=== PATIENT | male | born 1970 | race Caucasian/White ===

== ENCOUNTER 2022-01-17 22:41 | Emergency (ER) | payer BC, OTHER ==
[~2022-01-17] VITALS: Ht 185.5 cm; Wt 84.0 kg
[2022-01-17] MEDS ORDERED: NS IV 1000 ML 1,000 ML IV SCH (23:15)
[2022-01-17 23:18] LABS: ABG BASE EXCESS -0.3 MMOL/L (-2.5-2.5); ABG OXYGEN SATURATION 52 % (94-100); ABG PCO2 50 MMHG (35-45)
[2022-01-17 23:18] LABS: BASOPHILS % (AUTO) 0 % (0-10); EOSINOPHILS # (AUTO) 0.3 10^3/uL (0.0-0.3); EOSINOPHILS % (AUTO) 2 % (0-10); HEMATOCRIT 48 % (40-54); HEMOGLOBIN 15.8 g/dL (13.3-17.7); LYMPHOCYTES # (AUTO) 3.4 10^3/uL (1.0-4.0); LYMPHOCYTES % (AUTO) 27 % (12-44); MEAN CORPUSCULAR HEMOGLOBIN 32 pg (25-34); MEAN CORPUSCULAR HGB CONC 33 g/dL (32-36); MEAN CORPUSCULAR VOLUME 96 fL (80-99); MEAN PLATELET VOLUME 9.6 fL (9.0-12.2); MONOCYTES # (AUTO) 0.6 10^3/uL (0.0-1.0); MONOCYTES % (AUTO) 5 % (0-12); NEUTROPHILS # (AUTO) 8.2 10^3/uL (1.8-7.8); NEUTROPHILS % (AUTO) 66 % (42-75); PLATELET COUNT 386 10^3/uL (130-400); WHITE BLOOD COUNT 12.5 10^3/uL (4.3-11.0)
[2022-01-17 23:20] VITALS: BP_SYST 127; BP_SYST 128; BP_SYST 129; BP_DIAS 64; BP_DIAS 66; BP_DIAS 79
[2022-01-17 23:20] LABS: ABG PH 7.32 (7.37-7.43); ABG PO2 27 MMHG (79-93); ALLENS TEST YES-POS; INSPIRED O2 ROOM AIR; PATIENT TEMP 95.6; VENTILATOR NO
--- NOTE | 2022-01-17 23:21 | ED Syncope ---
General Chief Complaint: General Problems/Pain Stated Complaint: SHAKY,CHILLS,LOST CONTROL OF BOWELS,NAUSEA Source of Information: Patient Exam Limitations: No Limitations History of Present Illness Date Seen by Provider: Jan 17, 2022 Time Seen by Provider: 22:52 Initial Comments Patient presents ER by private conveyance with and son. He was getting up to go to the bathroom and fell down to the ground was too weak to get back up. He did not strike his head nor lose consciousness. He was sweating immensely according to his . He was too weak to stand. His says he has had this happen 3 times in the past 30 years and has never had it worked up. He has no known medical history and does not follow with a doctor routinely. He does not take any medicines routinely. He had couple episodes of emesis. This all started about an hour prior to arrival. He says he is feeling better now no longer having the weakness. He is not having any pain. He also lost his bowels. He does not have a known history of epilepsy but his says for about a minute he was convulsing full body and would not speak or follow any commands. She said he was kind of out of it afterwards. He does not have a history of diabetes that he knows of and his blood sugar was 170 per nursing staff when he arrived. No known history of coronary disease. He says his mom had lots of heart history problems. He denies any shortness of air cough fevers chills. 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 Allergies and Home Medications Allergies Coded Allergies: No Known Drug Allergies (Unverified , 01/17/22) Patient Home Medication List Home Medication List Reviewed: Yes Albuterol Sulfate (Proair Hfa) 1 Puff Puff, 2 PUFF IH Q4H PRN for COUGH Prescribed by: NELI BASURTO on 01/18/22154 Azithromycin (Azithromycin) 250 Mg Tablet, 250 MG PO DAILY Prescribed by: NELI BASURTO on 01/18/22154 Cefdinir (Cefdinir) 300 Mg Capsule, 300 MG PO BID Prescribed by: NELI BASURTO on 01/18/22154 Methylprednisolone (Methylprednisolone Dose Pack) 4 Mg Tab.ds.pk, 4 MG PO UD Prescribed by: NELI BASURTO on 01/18/22154 Review of Systems Constitutional: No chills; diaphoresis, dizziness; No fever; malaise, weakness EENTM: see HPI; No ear pain, No eye pain, No tearing Respiratory: No cough, No short of breath, No wheezing Cardiovascular: No chest pain, No edema, No Hx of Intervention Gastrointestinal: No abdominal pain, No constipation; diarrhea; No dysphagia, No nausea; vomiting Genitourinary: No decreased output, No discharge Musculoskeletal: No back pain, No joint pain All Other Systems Reviewed Negative Unless Noted: Yes Past Rzwcqmk-Rhrrsk-Uldnxh Hx Patient Social History Tobacco Use?: No Use of E-Cig and/or Vaping dev: No Substance use?: No Alcohol Use?: No Pt feels they are or have been: No Immunizations Up To Date Influenza Vaccine Up-to-Date: No; Not Current First/Initial COVID19 Vaccinat: N/A Physical Exam Vital Signs Vital Signs - First Documented 01/17/22 22:49 Temp 35.9 Pulse 93 Resp 20 B/P (MAP) 138/73 (94) Pulse Ox 95 O2 Delivery Room Air Capillary Refill : Height, Weight, BMI Height: '" Weight: lbs. oz. kg; BMI Method: General Appearance: WD/WN, Mild Distress HEENT: PERRL/EOMI, TMs Normal, Normal ENT Inspection, Pharynx Normal (Negative for erythema injection or exudate); No Moist Mucous Membranes Neck: Full Range of Motion, Normal Inspection, Non Tender, Supple Cardiovascular: Regular Rate, Rhythm, No Edema, Normal Peripheral Pulses Respiratory: Lungs Clear, Normal Breath Sounds, No Accessory Muscle Use, No Respiratory Distress Gastrointestinal: Normal Bowel Sounds, No Organomegaly, No Pulsatile Mass, Non Tender, Soft Extremities: Normal Inspection, Normal Range of Motion, Non Tender, No Pedal Edema, Slow Capillary Refill (Bilateral feet) Neurologic/Psychiatric: Alert, Oriented x3 Cranial Nerves: Normal Hearing, Normal Speech, PERRL Motor/Sensory: No Motor Deficit, No Sensory Deficit Skin: Warm/Dry, Mottled (Dusky appearance across his chest and upper extremities.) Progress/Results/Core Measures Results/Orders Lab Results Laboratory Tests Test 01/17/22 22:53 01/17/22 22:55 01/17/22 23:07 01/17/22 23:40 Range/Units White Blood Count 12.5 H 4.3-11.0 10^3/uL Red Blood Count 4.98 4.30-5.52 10^6/uL Hemoglobin 15.8 13.3-17.7 g/dL Hematocrit 48 40-54 % Mean Corpuscular Volume 96 80-99 fL Mean Corpuscular Hemoglobin 32 25-34 pg Mean Corpuscular Hemoglobin Concent 33 32-36 g/dL Red Cell Distribution Width 14.1 10.0-14.5 % Platelet Count 386 130-400 10^3/uL Mean Platelet Volume 9.6 9.0-12.2 fL Immature Granulocyte % (Auto) 0 % Neutrophils (%) (Auto) 66 42-75 % Lymphocytes (%) (Auto) 27 12-44 % Monocytes (%) (Auto) 5 0-12 % Eosinophils (%) (Auto) 2 0-10 % Basophils (%) (Auto) 0 0-10 % Neutrophils # (Auto) 8.2 H 1.8-7.8 10^3/uL Lymphocytes # (Auto) 3.4 1.0-4.0 10^3/uL Monocytes # (Auto) 0.6 0.0-1.0 10^3/uL Eosinophils # (Auto) 0.3 0.0-0.3 10^3/uL Basophils # (Auto) 0.0 0.0-0.1 10^3/uL Immature Granulocyte # (Auto) 0.1 0.0-0.1 10^3/uL Prothrombin Time 14.4 12.2-14.7 SEC INR Comment 1.1 0.8-1.4 Activated Partial Thromboplast Time 25 24-35 SEC D-Dimer 0.11 0.00-0.49 UG/ML Sodium Level 144 135-145 MMOL/L Potassium Level 3.7 3.6-5.0 MMOL/L Chloride Level 108 H 98-107 MMOL/L Carbon Dioxide Level 21 21-32 MMOL/L Anion Gap 15 H 5-14 MMOL/L Blood Urea Nitrogen 11 7-18 MG/DL Creatinine 1.12 0.60-1.30 MG/DL Estimat Glomerular Filtration Rate 79 BUN/Creatinine Ratio 10 Glucose Level 174 H 70-105 MG/DL Calcium Level 9.5 8.5-10.1 MG/DL Corrected Calcium 9.1 8.5-10.1 MG/DL Magnesium Level 2.1 1.6-2.4 MG/DL Total Bilirubin 0.3 0.1-1.0 MG/DL Aspartate Amino Transf (AST/SGOT) 12 5-34 U/L Alanine Aminotransferase (ALT/SGPT) 19 0-55 U/L Alkaline Phosphatase 64 40-136 U/L Troponin I < 0.028 <0.028 NG/ML C-Reactive Protein High Sensitivity 0.19 0.00-0.50 MG/DL Total Protein 7.5 6.4-8.2 GM/DL Albumin 4.5 3.2-4.5 GM/DL Procalcitonin 0.03 <0.10 NG/ML Serum Alcohol < 10 <10 MG/DL Glucometer 172 H 70-110 MG/DL Blood Gas Puncture Site LT RAD RT RAD Blood Gas Patient Temperature 95.6 35.9 Arterial Blood pH 7.32 *L 7.37 7.37-7.43 Arterial Blood Partial Pressure CO2 50 H 39 35-45 MMHG Arterial Blood Partial Pressure O2 27 *L 48 L 79-93 MMHG Arterial Blood HCO3 25 22 L 23-27 MMOL/L Arterial Blood Total CO2 27.0 23.3 21.0-31.0 MMOL/L Arterial Blood Oxygen Saturation 52 L 89 L 94-100 % Arterial Blood Base Excess -0.3 -2.6 L -2.5-2.5 MMOL/L Maxi Test YES-POS YES-POS Blood Gas Ventilator Setting NO NO Blood Gas Inspired Oxygen ROOM AIR ROOM AIR Test 01/18/22 01:15 Range/Units Urine Color YELLOW Urine Clarity CLEAR Urine pH 6.0 5-9 Urine Specific [place] >=1.030 1.016-1.022 Urine Protein 1+ H NEGATIVE Urine Glucose (UA) NEGATIVE NEGATIVE Urine Ketones TRACE H NEGATIVE Urine Nitrite NEGATIVE NEGATIVE Urine Bilirubin NEGATIVE NEGATIVE Urine Urobilinogen 0.2 < = 1.0 MG/DL Urine Leukocyte Esterase NEGATIVE NEGATIVE Urine RBC (Auto) NEGATIVE NEGATIVE Urine RBC NONE /HPF Urine WBC NONE /HPF Urine Crystals NONE /LPF Urine Bacteria NEGATIVE /HPF Urine Casts NONE /LPF Urine Mucus NEGATIVE /LPF Urine Culture Indicated NO My Orders Orders - NELI BASURTO Cbc With Automated Diff (01/17/22 23:10) Comprehensive Metabolic Panel (01/17/22 23:10) Hs C Reactive Protein (01/17/22 23:10) Ua Culture If Indicated (01/17/22 23:10) Alcohol (01/17/22 23:10) Fibrin Degradation Products (01/17/22 23:10) Procalcitonin (Pct) (01/17/22 23:10) Arterial Blood Gas (01/17/22 23:10) Chest 1 View, Ap/Pa Only (01/17/22 23:10) Troponin I [place] (01/17/22 23:10) Magnesium (01/17/22 23:10) Protime With Inr (01/17/22 23:10) Partial Thromboplastin Time (01/17/22 23:10) Ct Head Wo (01/17/22 23:10) Orthostatic Vital Signs (Adult (01/17/22 23:10) Accucheck Stat ONCE (01/17/22 23:13) Ed Iv/Invasive Line Start (01/17/22 23:13) Ns Iv 1000 Ml (Sodium Chloride 0.9%) (01/17/22 23:15) Aspirin Chewable Tablet (Baby Aspirin Ch (01/17/22 23:30) Arterial Blood Gas (01/17/22 23:51) Arterial Blood Draw - Obtain (01/17/22 23:40) Ceftriaxone 1 Gm Pre-Mix (Rocephin 1 Gm (01/18/22 02:00) Azithromycin Tablet (Zithromax Tablet) (01/18/22 02:00) Methylprednisolone Sod Succ (Solu-Medrol (01/18/22 02:00) Mycoplasma Antibodies (01/18/22 01:56) Medications Given in ED Vital Signs/I&O 01/17/22 01/17/22 01/18/22 22:49 23:20 02:01 Temp 35.9 Pulse 93 88 89 96 100 Resp 20 20 B/P (MAP) 138/73 (94) 127/66 (86) 115/67 128/79 (95) 129/64 (85) Pulse Ox 95 96 O2 Delivery Room Air Room Air Progress Progress Note #1: Time: 23:24 Progress Note Differential includes seizure, syncopal episode, PE, atypical coronary syndrome etc. We will give him some aspirin check some orthostats negative CT of his head. We will get some labs, ABG and urinalysis to help us sort out what is going on. Chest x-ray. His first ABG appears to be venous. Progress Note #2: Time: 01:40 Progress Note Orthostatic vital signs are unremarkable. The patient declined COVID or influenza testing. Progress Note #3: Time: 01:52 Progress Note The patient is not likely to have a pulmonary embolism with a negative D-dimer. His chest x-ray does not show distinct pneumonia however a walking pneumonia is possible. He endorses coughing a lot lately. He says he is a smoker. He certainly has diminished lung sounds so we will put him on steroids and an tibiotics as well as give him an inhaler and tell him to follow-up this week or next with a primary care provider. Return precautions were gone over. We strongly encouraged him to stay in the hospital but he declined stating he just wants to go home. He has felt well since he got here and has never had any pain. We will allow him to leave at this time. Initial ECG Impression Date: Jan 17, 2022 Initial ECG Impression Time: 22:58 Initial ECG Rate: 89 Initial ECG Rhythm: Normal Sinus Initial ECG Intervals: Normal Initial ECG Impression: Normal Comment Normal sinus rhythm without clinically relevant ST elevation or depression. Minor tremor artifact noted. Diagnostic Imaging Diagonstic Imaging: Xray Plain Films/CT/US/NM/MRI: chest Comments No acute cardiopulmonary process on 1 view chest x-ray. [facility], [place] NAME: SUZETTE KHAN [facility] REC#: [id number] PT STATUS: DEP ER : 1970 PHYSICIAN: NELI BASURTO MD ADMIT DATE: 01/17/22/ER Signed Date of Exam:01/17/22 CHEST 1 VIEW, AP/PA ONLY Indication: Syncope Frontal chest obtained at 1138 p.m. Heart and mediastinal silhouette are normal in appearance. There is central vascular congestion with borderline edema. There is no consolidation or pneumothorax or pleural fluid. IMPRESSION: Central vascular congestion with borderline edema. No consolidation or pleural fluid. Dictated by: Dictated on workstation # [id number] Dict: 01/18/22 0647 Trans: 01/18/22 0753 [facility] [id number] Interpreted by: SANTA CHEN MD Electronically signed by: SANTA CHEN MD 01/18/22 0753 Reviewed: Reviewed by Me Diagonstic Imaging: CT Plain Films/CT/US/NM/MRI: head Comments No acute hemorrhage, hydrocephalus or mass-effect. [facility] [place], [place] NAME: SUZETTE KHAN [facility] REC#: [id number] PT STATUS: DEP ER : 1970 PHYSICIAN: NELI BASURTO MD ADMIT DATE: 01/17/22/ER Signed Date of Exam:01/17/22 CT HEAD WO INDICATION: Syncope. TECHNIQUE: Multiple contiguous axial images were obtained through the brain without the use of intravenous contrast. Auto Exposure Controls were utilized during the CT exam to meet ALARA standards for radiation dose reduction. There is no prior brain CT for comparison. FINDINGS: There are no extra-axial fluid collections. No intracranial hemorrhage. No intracranial mass or mass effect. No midline shift. The ventricles are normal in size and position. There were no focal parenchymal abnormalities in the brain. Calvarial windows show no acute bony abnormality. There is some mucosal thickening in the ethmoid air cells. IMPRESSION: No acute intracranial abnormality. Underlying sinus disease as described above. Dictated by: Dictated on workstation # [id number] Dict: 01/18/22616 Trans: 01/18/22752 [id number] Interpreted by: SANTA CHEN MD Electronically signed by: SANTA CHEN MD 01/18/22 0753 Reviewed: Reviewed Night [facility] Study, Reviewed by Me Departure Impression Primary Impression: Syncope and collapse Additional Impressions: COPD (chronic obstructive pulmonary disease) Qualified Codes: J44.9 - Chronic obstructive pulmonary disease, unspecified Pneumonia Qualified Codes: J18.9 - Pneumonia, unspecified organism Disposition: HOME, SELF-CARE Condition: Stable Departure-Patient Inst. Decision time for Depature: 01:52 Referrals: NO,LOCAL PHYSICIAN (PCP/Family) Primary Care Physician Patient Instructions: Exacerbation of COPD, LOCAL PHYSICIAN LIST, Near Fainting (DC), Pneumonia, Adult ED Add. Discharge Instructions: I suspect that you may have a pneumonia not seen on the chest x-ray in addition to your chronic lung disease. We have sent off some blood tests for mycoplasma antibodies, a type of p neumonia. If it is positive in the next couple days we will call you and let you know. Take the Medrol Dosepak as prescribed. Cefdinir 1 capsule twice a day for 10 days. Azithromycin 1 tablet daily for another 4 days starting on 01/19/2022. Albuterol 2 puffs every 4 hours as needed for coughing fits, shortness of air or wheezing. Follow-up with a primary care provider in the next 7 to 10 days. Return to the ER for significant worsening symptoms. All discharge instructions reviewed with patient and/or family. Voiced understanding. Scripts Azithromycin (Azithromycin) 250 Mg Tablet 250 MG PO DAILY, #4 TAB 0 Refills Prov: NELI BASURTO 01/18/22 Cefdinir (Cefdinir) 300 Mg Capsule 300 MG PO BID for 10 Days, #20 CAP 0 Refills Prov: NELI BASURTO 01/18/22 Methylprednisolone (Methylprednisolone Dose Pack) 4 Mg Tab.ds.pk 4 MG PO UD for 6 Days, #21 PKG 0 Refills PER DOSE PACK INSTRUCTIONS Prov: NELI BASURTO 01/18/22 Albuterol Sulfate (PROAIR HFA) 1 Puff Puff 2 PUFF IH Q4H PRN for COUGH, #1 EA 0 Refills 1 PUFF = 90 MCG Prov: NELI BASURTO 01/18/22 Work/School Note: Work Release Form Date Seen in the Emergency Department: Jan 18, 2022 Return to Work: Jan 23, 2022 Restrictions: No Restrictions, Return-No Fever (24hrs) NELI BASURTO Jan 17, 2022 23:21
[2022-01-17 23:30] LABS: FIBRIN DEGRADATION PRODUCTS 0.11 UG/ML (0.00-0.49); INR 1.1 (0.8-1.4); PROTHROMBIN TIME PATIENT 14.4 SEC (12.2-14.7)
[2022-01-17] MEDS ORDERED: ASPIRIN 81 MG CHEW (CHILDREN'S ASA) PO ONE (23:30)
[2022-01-17 23:32] LABS: ALANINE AMINOTRANSFERASE 19 U/L (0-55); ALBUMIN 4.5 GM/DL (3.2-4.5); ALKALINE PHOSPHATASE 64 U/L (40-136); BILIRUBIN,TOTAL 0.3 MG/DL (0.1-1.0); BUN/CREATININE RATIO 10; CALCIUM 9.5 MG/DL (8.5-10.1); CARBON DIOXIDE 21 MMOL/L (21-32); CHLORIDE 108 MMOL/L (98-107); CREATININE SERUM 1.12 MG/DL (0.60-1.30); GFR ESTIMATED 79; GLUCOSE 174 MG/DL (70-105); MAGNESIUM 2.1 MG/DL (1.6-2.4); POTASSIUM 3.7 MMOL/L (3.6-5.0); SODIUM 144 MMOL/L (135-145); TOTAL PROTEIN 7.5 GM/DL (6.4-8.2)
[2022-01-17 23:56] LABS: ABG BASE EXCESS -2.6 MMOL/L (-2.5-2.5); ABG OXYGEN SATURATION 89 % (94-100); ABG PCO2 39 MMHG (35-45); ABG PH 7.37 (7.37-7.43); ABG PO2 48 MMHG (79-93); ABG TCO2 23.3 MMOL/L (21.0-31.0); ALLENS TEST YES-POS; INSPIRED O2 ROOM AIR; PATIENT TEMP 35.9; VENTILATOR NO
[2022-01-18 01:21] LABS: BILIRUBIN,URINE NEGATIVE (NEGATIVE); CLARITY,URINE CLEAR; COLOR,URINE YELLOW; GLUCOSE, URINE (UA) NEGATIVE (NEGATIVE); KETONES,URINE TRACE (NEGATIVE); LEUKOCYTE ESTERASE ,URINE NEGATIVE (NEGATIVE); NITRITE,URINE NEGATIVE (NEGATIVE); PROTEIN,URINE 1+ (NEGATIVE)
[2022-01-18 01:53] LABS: BACTERIA,URINE NEGATIVE /HPF
[2022-01-18] MEDS ORDERED: METH4TAB10 PO (01:55)
[2022-01-18] MEDS ORDERED: RT-ALBUINH IH (01:55)
[2022-01-18] MEDS ORDERED: CEFD300C3 PO (01:55)
[2022-01-18] MEDS ORDERED: AZIT250T12 PO (01:55)
[2022-01-18] MEDS ORDERED: cefTRIAXone 1 GM PRE-MIX 50 ML IV ONE (02:00)
[2022-01-18] MEDS ORDERED: methylPREDNISolone 125 MG (Solu-MEDROL) VIAL IVP ONE (02:00)
[2022-01-18] MEDS ORDERED: AZITHROMYCIN 250 MG TAB (ZITHROMAX) PO ONE (02:00)
[2022-01-18 02:01] VITALS: BP 115/67
--- NOTE | 2022-01-18 06:23 | Diagnostic Imaging Report ---
INDICATION: Syncope. TECHNIQUE: Multiple contiguous axial images were obtained through the brain without the use of intravenous contrast. Auto Exposure Controls were utilized during the CT exam to meet ALARA standards for radiation dose reduction. There is no prior brain CT for comparison. FINDINGS: There are no extra-axial fluid collections. No intracranial hemorrhage. No intracranial mass or mass effect. No midline shift. The ventricles are normal in size and position. There were no focal parenchymal abnormalities in the brain. Calvarial windows show no acute bony abnormality. There is some mucosal thickening in the ethmoid air cells. IMPRESSION: No acute intracranial abnormality. Underlying sinus disease as described above. Dictated by: Dictated on workstation # [id number]
--- NOTE | 2022-01-18 06:52 | Diagnostic Imaging Report ---
Indication: Syncope Frontal chest obtained at 1138 p.m. Heart and mediastinal silhouette are normal in appearance. There is central vascular congestion with borderline edema. There is no consolidation or pneumothorax or pleural fluid. IMPRESSION: Central vascular congestion with borderline edema. No consolidation or pleural fluid. Dictated by: Dictated on workstation # [id number]
== END 2022-01-18 02:27 | disposition home or self-care (01) ==
LOC: ER 22:44
DX: J44.9 Chronic obstructive pulmonary disease, unspecified (principal); J18.9 Pneumonia, unspecified organism; R55 Syncope and collapse; F17.200 Nicotine dependence, unspecified, uncomplicated; Z28.310 Unvaccinated for COVID-19
CPT/HCPCS: 36600; 70450; 71045; 80053; 81000; 82805; 82947; 83735; 84145; 84484; 85025; 85379; 85610; 85730; 86141; 86738; 93005; 96361; 96374; 96375; 99285; G0480; 36415; 80320